=== PATIENT | male | born 1940 | race Caucasian/White ===

== ENCOUNTER 2016-08-18 17:45 | Inpatient (IN) | payer MEDICARE ==
[~2016-08-18] VITALS: Ht 177.8 cm; Wt 79.4 kg
--- NOTE | 2016-08-18 18:15 | NUR ---
PT IS IN ROOM #2A. DR AGGARWAL EVALUATED THE PT.
[2016-08-18 18:18] LABS: *BILIRUBIN,URIN NEGATIVE (NEGATIVE); *BLOOD, URINE 2+ (NEGATIVE); *CLARITY,URINE CLEAR (CLEAR); *COLOR,URINE DARK YELLOW (YELLOW); *KETONES,URINE TRACE (NEGATIVE); *PROTEIN,URINE 1+ (NEGATIVE); LEUKOCYTE ESTERASE ,URINE NEGATIVE (NEGATIVE); NITRITE, URINE NEGATIVE (NEGATIVE); UGLUCOSE NEGATIVE (NEGATIVE)
[2016-08-18 18:22] LABS: BASOPHILS # (AUTO) 0.1 K/uL (0.0-8.0); BASOPHILS % (AUTO) 1.7 % (0.0-2.0); EOSINOPHILS % (AUTO) 0.3 % (0.0-7.0); HEMATOCRIT 40.6 % (40-50); LYMPHOCYTES # (AUTO) 0.5 K/UL (0.8-4.8); LYMPHOCYTES % (AUTO) 9.4 % (20.5-51.5); MEAN CORPUSCULAR HEMOGLOBIN 29.2 UUG (27.0-31.0); MEAN CORPUSCULAR HGB CONC 32 g/dL (32.0-37.0); MEAN CORPUSCULAR VOLUME 91.2 FL (82.0-92.0); MONOCYTES # (AUTO) 0.4 K/UL (0.1-1.30); MONOCYTES % (AUTO) 7.8 % (0.0-11.0); NEUTROPHILS # (AUTO) 4.7 K/UL (1.8-8.9); NEUTROPHILS % (AUTO) 80.8 % (38.5-71.5); PLATELET COUNT (AUTO) 248 K/UL (150-450); RED BLOOD CELL COUNT(AUTO) 4.46 MIL/UL (4.7-6.1); WHITE BLOOD COUNT (AUTO) 5.7 K/UL (4.0-11.2)
[2016-08-18 18:31] LABS: CARBON DIOXIDE 27 mmol/L (21-32); CHLORIDE 107 mmol/L (98-107); GLUCOSE 101 mg/dL (74-106); MUCUS,URINE MANY /LPF (0-FEW); POTASSIUM 4.3 mmol/L (3.5-5.1); UREA NITROGEN, BLOOD 14 mg/dL (7-18)
[2016-08-18 18:32] LABS: ETHANOL < 3 MG/DL (0-0)
[2016-08-18 18:34] LABS: BAND % (MANUAL) 4 % (0-10); EOSINOPHILS % (MANUAL) 1 % (0-8); LYMPHOCYTES % (MANUAL) 8 % (20-40); MONOCYTES % (MANUAL) 6 % (2-10); NEUTROPHILS % (MANUAL) 81 % (42-75)
[2016-08-18 18:37] LABS: ALANINE AMINOTRANSFERASE 14 U/L (16-63); ALKALINE PHOSPHATASE 69 U/L (50-136); ASPARTATE AMINOTRANSFERASE 21 U/L (15-37); BILIRUBIN,DIRECT 0.4 mg/dL (0.0-0.2); BILIRUBIN,TOTAL 1.3 mg/dL (0.2-1.0); TOTAL PROTEIN, SERUM 7.5 g/dL (6.4-8.2)
[2016-08-18 18:38] LABS: ACETAMINOPHEN < 2.0 ug/mL (10-30)
[2016-08-18 18:44] LABS: THYROID STIMULATING HORMONE 0.323 mIU/mL (0.358-3.740)
[2016-08-18 18:51] LABS: *AMPHETAMINE, URINE NEGATIVE (NEGATIVE); *BARBITURATE, URINE NEGATIVE (NEGATIVE); *CANNABINOID, URINE NEGATIVE (NEGATIVE); *COCCAINE, URINE NEGATIVE (NEGATIVE); *OPIATE, URINE NEGATIVE (NEGATIVE); *PHENCYCLIDINE SCREEN,URINE NEGATIVE (NEGATIVE)
--- NOTE | 2016-08-18 18:55 | NUR ---
REPORT GIVEN TO MHU RN. REPORT GIVEN TO PATIENT PORTAL CONCIERGE RN
--- NOTE | 2016-08-18 19:24 | NUR ---
Pt. admitted to [facility]HU , under care of Dr. Sheriff. Dx: Danger to self/Suicidal ideation Belongs List completed
[2016-08-18] MEDS ORDERED: MAGNESIUM HYDROXIDE 30 ML LIQUID UDC PO PRN (20:00)
[2016-08-18] MEDS ORDERED: ACETAMINOPHEN 325 MG TABLET PO PRN (20:00)
[2016-08-18] MEDS ORDERED: LORAZEPAM 0.5 MG TABLET PO PRN (20:00)
[2016-08-18] MEDS ORDERED: ZOLPIDEM 5 MG TABLET PO PRN (20:00)
[2016-08-18] MEDS ORDERED: MAG HYDROX/AL HYDROX/SIMETH 30 ML LIQUID UDC PO PRN (20:00)
--- NOTE | 2016-08-18 23:55 | NUR ---
received to care, from the emergency room, this homeless gentleman, who states he lives in his car, and was living in a "parking lot" he apparently was being evicted from the parking lot, when he made statements that he would drive to the [facility] and overdose on pills. upon arrival on the unit, he was calm and cooperative. assited with shower, and to bed, after having a snack. as 2354, he remains asleep. no distress noted. Addendum: 08/19/16 at 0005 by JAS OCAMPO LVN pt denies SI, or desire to harm self. pt verbally contracted for safety, while on the unit.
--- NOTE | 2016-08-19 06:00 | NUR ---
slept 4.45 hours, total. continues to sleep, but easy to awaken. no distress noted. will continue to monitor closely.
[2016-08-19 07:30] VITALS: BP 125/86
[2016-08-19] MEDS ORDERED: no home meds (08:56)
--- NOTE | 2016-08-19 08:57 | NUR ---
PATIENT IS UP EARLY THIS MORNING IN THE BATHROOM WASHING UP. PATIENT ATE BREAKFAST THIS MORNING 100% AND ASKED FOR ADDITIONAL TRAY.
--- NOTE | 2016-08-19 10:28 | NUR ---
PATIENT IS BECOMING AGITATED DUE TO CONCERN THAT THE ONLY PLACE HE RESIDES WHICH IS HIS CAR WILL BE LOST. DUE TO NEW PROPERTY MANAGEMENT THEY ARE THREATENING PATIENT REMOVING HIS CAR FROM PROPERTY AND PATIENT IS CONCERNED THAT THE ONLY PROPERTY HE OWNS AND LIVES WILL BE LOST. PATIENT WAS ABLE TO SPEAK TO THE CHARGE NURSE TO EXPLAIN HIS SITUATION ON THE UNIT AND WILL WAIT TO BE SEEN BY THE DOCTOR.
--- NOTE | 2016-08-19 11:49 | NUR ---
PATIENT BECOMING AGITATED AGAIN REQUESTING BELONGINGS BECAUSE HE WANTS TO LEAVE. INFORMED WHEN THE DOCTOR WILL REEVALUATE HIM AGAIN BUT TODAY DOCTOR DETERMINED WILL NOT BE DISCHARGED/ RELEASED TODAY.
--- NOTE | 2016-08-19 14:13 | NUR ---
Initial discharge instructions: Pt is homeless and has been residing in his car.Pt has no family to contact.Per pt,he would like to return to his car upon discharge.Pt denied SNF and residential placement.SW will speak with pt and MD regarding appropriate discharge plans.SW will form a safe and proper discharge.
[2016-08-19 20:00] VITALS: BP 129/88
--- NOTE | 2016-08-19 22:00 | NUR ---
received to care, sitting in his room, isolative, and guarded, upon approach. remains focused on being discharged. difficult to redirect. encouraged to speak with the doctor in the morning. PRN medications for anxiety and insomnia were both offered, but he declined, stating that he doesnt take medications. he continues to deny SI, depression, or the need to be in the hospital. as of 2199, he remains awake. needs redirection at times. currently in bed, with eyes open. will continue to monitor closely.
--- NOTE | 2016-08-19 23:30 | NUR ---
at nurses station, demanding his belongings, and to be released. redirected back to bed by charge nurse. will continue to monitor closely.
--- NOTE | 2016-08-20 00:30 | NUR ---
appears to be asleep. nom distress noted.
--- NOTE | 2016-08-20 06:00 | NUR ---
slept 1.5 hours, total.
[2016-08-20 07:30] VITALS: BP 135/82
[2016-08-20] MEDS: ESCITALOPRAM OXALATE 10 MG TABLET PO SCH ×2 (09:00→09:37)
--- NOTE | 2016-08-20 12:17 | NUR ---
DC Note: Patient is choosing to go against medical advice. Patient is planning to return back to his car in [place], [place]. He has no family to assist with care or to contact. Patient is choosing to be discharged without care home/SNF placement, and has stated he will use public transportation. Patient will be provided with bus tokens. Patient was provided with the homeless care home packet, which includes a list of emergency shelters, housing resources, drop in centers, and showers/hot meals centers. This also included the Homeless Information Hotline (570)-452-7798 or 211, [facility] (734)-[phone], and the [facility] [phone]. Patient was referred to [facility] [phone] for Comprehensive Ophthalmologist referrals. Patient was provided with outpatient mental health resources to [facility] , [facility] , and the National Suicide Prevention Lifeline . He has completed and signed the homeless patient waiver form.
--- NOTE | 2016-08-20 15:27 | NUR ---
PATIENT IS LEAVING AMA. PT HAS NO FAMILY WHO CAN PICK HIM UP. PT IS GOING BACK TO LIVE IN HIS CAR. PT HAS $1379.00 IN HIS POSSESSION. PT WAS CALLED A TAXI. PT IS COOPERATIVE AND WILLING TO GO. ALL BELONGINGS RETURNED. PT IS ALERT AND ORIENTEDX 3. DENIES S.I.
== END 2016-08-20 14:30 | disposition home or self-care (01) | DRG 881 ==
LOC: ER 17:46 → GPS 19:08
PROVIDERS: ADMIT Psychiatry & Neurology Psychiatry; ATTEND Psychiatry & Neurology Psychiatry
DX: F32.9 Major depressive disorder, single episode, unspecified (principal); H54.0 Blindness, both eyes; H91.90 Unspecified hearing loss, unspecified ear; Z59.0 Homelessness; Z81.8 Family history of other mental and behavioral disorders
CPT/HCPCS: 36415; 70030-TC; 70450; 71010; 80307; 83605; 84443; 85025; 85730; 87040; 87086; 93005; 97161; A4663; G0480; G0480-TC

== ENCOUNTER 2017-12-31 20:23 | Inpatient (IN) | payer MEDICARE ==
[~2017-12-31] VITALS: Ht 177.8 cm; Wt 86.2 kg
[~2017-12-31 20:23] MED LIST: no home meds
[2017-12-31] MEDS ORDERED: ENOX40DI SQ (20:30)
[2017-12-31] MEDS ORDERED: ZIPR20VI IM (20:30)
[2017-12-31] MEDS ORDERED: FAMO20TA8 PO (20:30)
--- NOTE | 2017-12-31 20:38 | NUR ---
Patient BIB private ambulance from [facility] for Medical Clearance and GPS admission. Patient A/O X3, ambulatory, labile and manic upon arrival arguing with malt liquors sales representative demanding a "business card" from them (as well as from other staff as well) so that he could follow up. Resisting all care and loudly stating "I do not authorize" whenever staff ask him questions or attempt to perform care. Patient remained on ambulance gurney due to no medical intervention required, ERMD reviewed medical clearance from prior hospital.
[2017-12-31] MEDS ORDERED: OLANZAPINE 10 MG VIAL IM ONE ×2 (20:44→20:45)
--- NOTE | 2017-12-31 20:45 | NUR ---
Patient continuing to refuse all care including vital sign assessment, becoming loud and argumentative and threatening staff. ERMD notified, orders received.
--- NOTE | 2017-12-31 20:58 | NUR ---
MRSA not performed due to negative specimen report from prior hospital upon transfer.
--- NOTE | 2017-12-31 20:58 | NUR ---
Pt. admitted to GPS, under care of Dr. NIXON Belongs List completed
[2017-12-31] MEDS ORDERED: MAG HYDROX/AL HYDROX/SIMETH 30 ML LIQUID UDC PO PRN (21:45)
[2017-12-31] MEDS ORDERED: ZOLPIDEM 5 MG TABLET PO PRN (21:45)
[2017-12-31] MEDS ORDERED: LORAZEPAM 0.5 MG TABLET PO PRN (21:45)
[2017-12-31] MEDS ORDERED: MAGNESIUM HYDROXIDE 30 ML LIQUID UDC PO PRN (21:45)
[2017-12-31] MEDS ORDERED: ACETAMINOPHEN 325 MG TABLET PO PRN (21:45)
[2017-12-31] MEDS ORDERED: ACET-2154 PO (21:48)
[2017-12-31] MEDS ORDERED: ONDA4TAB10 IV (21:52)
--- NOTE | 2017-12-31 22:00 | NUR ---
GPS: 77 year old male admitted to GPS, under care of Dr. NIXON for 5150/GD. alert and oriented x2 to name and place. patient is uncooperative with care. assisted in adriana chair. Refused body check. refused to answer questions.no c/o pain or discomfort. v/s wnl. belong list completed. continue monitoring for safety.
--- NOTE | 2018-01-01 06:15 | NUR ---
GPS: Remain uncooperative with medications and care. assisted with adl's. slept 3.15 hrs through the night. refused am lab.resting in bed comfortably.continue monitoring for safety.
[2018-01-01 07:30] VITALS: BP 120/61
[2018-01-01] MEDS ORDERED: ONDANSETRON HCL 4 MG TABLET PO PRN (08:30)
[2018-01-01] MEDS: ENOXAPARIN SODIUM 40 MG/0.4 ML DISP.SYRIN SQ SCH (08:45)
[2018-01-01] MEDS: FAMOTIDINE 20 MG TABLET PO SCH ×2 (08:45→16:11)
--- NOTE | 2018-01-01 14:30 | NUR ---
PT NOTED TO BE ANXIOUS, MAKING INAPPROPRIATE STATEMENTS SUCH "DO YOU SPEAK [place]" AND "ARE YOU FROM THIS COUNTRY? I NEED TO MAKE SURE YOU'RE [place]." PT ALSO STATES HE DOES NOT WANT HIS DR., DR. NIXON, BECAUSE "HE SOUNDS AND I NEED AN [place]." PT ALSO STATING THAT LAST NIGHTS STAFF STOLE "THOUSANDS AND THOUSANDS OF DOLLARS" FROM HIS WALLET, AND DEMANDS TO MAKE A POLICE REPORT. PT NOTED HIGHLY FORGETFUL. FREQUENTLY ASKING WHERE HIS ROOM IS. NO COMBATIVE OR AGGRESSIVE BEHAVIOR NOTED AT THIS TIME.
[2018-01-01 15:27] VITALS: BP 142/74
[2018-01-01 20:22] VITALS: BP 134/80
[2018-01-01] MEDS: risperiDONE 0.25 MG TABLET PO SCH (20:40)
[2018-01-02] MEDS: FAMOTIDINE 20 MG TABLET PO SCH ×2 (08:22→16:44)
[2018-01-02] MEDS: risperiDONE 0.25 MG TABLET PO SCH ×2 (08:22→20:08)
[2018-01-02] MEDS: ENOXAPARIN SODIUM 40 MG/0.4 ML DISP.SYRIN SQ SCH (08:23)
--- NOTE | 2018-01-02 12:00 | NUR ---
PT IS ANXIOUS, DISORGANIZED, HYPERVERBAL, TALKS IN CIRCLES, PRESSURED SPEECH, REPEATS HIMSELF OVER AND OVER. VERY NEEDY, FOLLOWS STAFF AROUND TALKING AND NEEDS FREQUENT LIMIT SETTING AND REDIRECTION. CONTINUES TO BE ARGUMENTATIVE, LABILE, EASILY IRRITABLE. CONTINUES TO MAKE INAPPROPRIATE COMMENTS ABOUT RACE. PARANOID AND DELUSIONAL, CONTINUES TO ACCUSE STAFF OF "STEALING THOUSANDS AND THOUSANDS OF DOLLARS FROM ME", CONSTANTLY COMPLAINING THAT HIS ROOMATE HAS A PLAN TO KILL HIM.
--- NOTE | 2018-01-02 14:00 | NUR ---
DR DUMAS AND DR ZEPEDA WERE ON UNIT TO ASSESS PT. ATTEMPTED TO TALK WITH PT FOR A LONG TIME, BUT PT WAS HYPERVERBAL, PRESSURED SPEECH, DISORGANIZED, TALKING OVER THEM, AND REFUSED TO COOPERATE.
--- NOTE | 2018-01-02 16:00 | NUR ---
REFUSED CT SCAN "I AM OLD AND DONT NEED THIS BULLSHIT RIGHT NOW, LEAVE ME ALONE".
[2018-01-02 20:28] VITALS: BP 103/65
[2018-01-03] MEDS: FAMOTIDINE 20 MG TABLET PO SCH ×2 (09:00→17:00)
[2018-01-03] MEDS: risperiDONE 0.25 MG TABLET PO SCH ×2 (09:00→20:03)
--- NOTE | 2018-01-03 13:02 | NUR ---
Initial Discharge Instructions: Per patient is homeless but open for placement in a facility that can provide adequate care for him as he is ambulatory with front wheel walker only. SW will confirm if patient still has placement at [facility]. SW will continue to collaborate with interdisciplinary team to ensure safe and proper discharge plans.
[2018-01-03 20:04] VITALS: BP 111/66
[2018-01-04 07:30] VITALS: BP 141/75
[2018-01-04] MEDS: risperiDONE 0.25 MG TABLET PO SCH (09:00)
[2018-01-04] MEDS: FAMOTIDINE 20 MG TABLET PO SCH ×2 (09:00→16:26)
--- NOTE | 2018-01-04 11:22 | NUR ---
Discharge Planning: plate take out worker faxed referral packet for admission review to [facility] [ph: ; fax: ]. Addendum: 01/04/18 at 1500 by CLAUDINE PATEL Additional Information: Patient has been accepted and acceptance has been confirmed by Maye account coordinator.
--- NOTE | 2018-01-04 14:37 | NUR ---
Activity group Note: Patients were asked to participate in a [id number] decorating activity where they decorate their pumpkin and then are asked to share it with the group. Subjective: --- Objective: Patient did not attend. Assessment: Patient needs encouragement to participate in group activity and engage with peers. Plan: bridge ironworker helper will encourage group attendance as scheduled. bridge ironworker helper will continue to provide emotional support and guidance in he;ping patient become more engaged with activities and peers.
--- NOTE | 2018-01-04 15:14 | NUR ---
Discharge Planning: curing room worker called and spoke with patient's advocate, Stephanie [ ; home: [phone]] informing her of patient's planned discharge for tomorrow to [facility] and patient prognosis. Stephanie was agreeable with plan.
[2018-01-04 19:41] VITALS: BP 133/74
[2018-01-04] MEDS: risperiDONE 0.5 MG TABLET PO SCH (20:13)
[2018-01-05] MEDS: FAMOTIDINE 20 MG TABLET PO SCH (09:31)
[2018-01-05] MEDS: risperiDONE 0.5 MG TABLET PO SCH (09:31)
--- NOTE | 2018-01-05 11:00 | NUR ---
Gps/Exhibit Display Representative- Patient is [place], needy, demanding behavior, needed redirections prompting to take routine meds. wants larger portions of his food .Showered w/ 2 staff assisting r/t to difficulty redirecting during shower. Patient was well informed of his discharged plan today ,possible [facility] per Assistant Professor Of Business .
--- NOTE | 2018-01-05 13:11 | NUR ---
Discharge Note: Patient will be discharged to [facility] [[address] [place] [address]; [phone]] via ambulance. Please arrange an ambulance for this patient. Spoke with Yeimi at the facility who states they are ready to accept the patient today. Spoke with patient's advocate, Stephanie (h. [phone]; cell [phone]) who is aware and agreeable with discharge plans. Patient is alert and oriented x1 and is cooperative. Patient will follow-up at the facility with Dr. Padilla ([employer]) and Dr. Montero (Psychiatrist).
--- NOTE | 2018-01-05 13:30 | NUR ---
Discharge Planning Note: At 1030, AMANDA received orders for patient to discharge today. AMANDA contacted [facility] ( ) to inform about patient's discharge. Spoke to Belen at the facility who stated that she will confirm with her senior administrator support about patient's acceptance and to call back in 1 hour. 1200, AMANDA reached out to Belen and [facility] again. Per Belen, the patient could not be accepted at this time. AMANDA faxed inquiry to [facility] ( ; ). Spoke with Hannah who stated that the patient is accepted at the facility. At 1230, placed call to patient's advocate, Stephanie (h. [phone]; c. [phone]) to inform her of patient's discharge plan. Stephanie expressed great concern for discharge plan to [facility], expressing that the facility is "too far away" and she cannot provide support to him in [place], [place]. Stephanie asked SW to fax other facilities in the [place] area. AMANDA agreed and faxed to [facility] ( ; ) at 1235. At 1300, AMANDA spoke with Yeimi at [facility] who stated that the patient was accepted at that facility. At 1305, SW placed call to Stephanie to inform her of accepting facility. Stephanie expressed gratitude and was agreeable with discharge plan. Patient was made aware of discharge plan and he was cooperative.
--- NOTE | 2018-01-05 13:46 | NUR ---
Gps/Earth Science Technical Officer- [facility] was called for report, given To Lucia Jacobo. All belongings and valuables was packed given to patient. Patient was well informed of discharged plan. Patient in good spirit, no new complaints noted. Ambulance arranged brick picker time at 1450 , facility was informed.
--- NOTE | 2018-01-05 14:30 | NUR ---
Firearms Report: Beater Out completed and submitted [employer] report on 01/05/18.
--- NOTE | 2018-01-05 15:28 | NUR ---
Gps/Switchboard Clerk- Discharge planning in progress to [facility], waiting for ambulance pick time 1530 per ambulance, available time.
[2018-01-05 16:00] VITALS: BP 108/59
--- NOTE | 2018-01-05 16:41 | NUR ---
Gps/Scrap Stripper Hand- Ambulance in to pharmacy picking technician patient, all belongings given back to patient.Discharged in no distress,, no c/o offered.
== END 2018-01-05 16:47 | DRG 885 ==
LOC: ER 20:26 → GPS 20:39
PROVIDERS: ADMIT Psychiatry & Neurology Psychiatry; ATTEND Internal Medicine
DX: F29 Unspecified psychosis not due to a substance or known physiological condition (principal); I11.0 Hypertensive heart disease with heart failure; F32.9 Major depressive disorder, single episode, unspecified; D63.8 Anemia in other chronic diseases classified elsewhere; I50.9 Heart failure, unspecified; G47.00 Insomnia, unspecified; Z59.0 Homelessness; F03.90 Unspecified dementia, unspecified severity, without behavioral disturbance, psychotic disturbance, mood disturbance, and anxiety; Z73.6 Limitation of activities due to disability; Z91.19 Patient's noncompliance with other medical treatment and regimen; Z87.891 Personal history of nicotine dependence
CPT/HCPCS: A4663; J1650; J2358